=== PATIENT | female | born 1990 | race Caucasian/White ===

== ENCOUNTER 2024-03-26 05:20 | Emergency (ER) | payer OTHER ==
[~2024-03-26] VITALS: Ht 162.6 cm; Wt 51.7 kg
[2024-03-26] MEDS ORDERED: ALDACTONE25 MG (05:28)
[2024-03-26] MEDS ORDERED: IRON240 MG (05:29)
[2024-03-26] MEDS ORDERED: KETOROLAC TROMETHAMINE 30 MG VIAL IM STA (08:33)
== END 2024-03-26 10:17 | disposition home or self-care (01) ==
LOC: ER 05:22
DX: S90.111A Contusion of right great toe without damage to nail, initial encounter (principal); X58.XXXA Exposure to other specified factors, initial encounter; Y93.89 Activity, other specified; Y92.89 Other specified places as the place of occurrence of the external cause; Y99.9 Unspecified external cause status